=== PATIENT | male | born 1950 | race Caucasian/White ===

== ENCOUNTER → 2021-06-21 09:38 | Outpatient (CLI) | payer MEDICARE, MEDICAID, SELFPAY ==
[2021-06-21 11:04] LABS: COVID19 -Nasal RAPID Negative (Negative)
== END ==
PROVIDERS: Visit Provider Surgery
DX: Z01.812 Encounter for preprocedural laboratory examination (principal); Z20.822 Contact with and (suspected) exposure to COVID-19
CPT/HCPCS: 87635

== ENCOUNTER 2021-06-21 09:46 | Day surgery (SDC) | payer MEDICARE, MEDICAID, SELFPAY ==
--- NOTE | 2021-06-21 | PATH_ITS ---
[facility] Accession Number: [id number] . 01 Material submitted: . PART A: hepatic flexure - HEPATIC POLYP PART B: sigmoid colon - SIGMOID POLYP . 02 Diagnosis: A. Hepatic Flexure, Polyp, Biopsy: Tubular adenoma. . B. Sigmoid Colon, Polyp, Biopsy: Hyperplastic polyp. V 06/26/2021 1248 Local . 02 Electronically signed: . Sammi Kotahri MD, Pathologist NPI- [id number] . 01 Gross description: . Part A: HEPATIC POLYP: Received in formalin are multiple fragment(s) of aranda, soft tissue measuring 0.7 x 0.3 x 0.1 cm in aggregate submitted entirely in 1 cassette(s) Part B: SIGMOID POLYP: Received in formalin is 1 fragment(s) of aranda, soft tissue measuring 0.9 x 0.5 x 0.3 cm , which is bisected and submitted entirely in 1 cassette(s) /[facility] 06/23/2021 0154 Local . 02 Pathologist provided ICD-10: D12.3 . 02 CPT . 193195, 012650 Specimen Comment: A courtesy copy of this report has been sent to [phone] Performed at: 01 [facility] [address] [facility], [place], [place] [id number] MD Armond Reynoso MD Phone: [phone] Performed at: 02 [facility] [address] [place], [place] [id number] MD Sammi Kothari MD Phone: [phone]
[2021-06-21 10:52] VITALS: BP 109/80; PULSE 89; RESP 16; TEMP 36.5; O2SAT 98; BMI 24.3
[2021-06-21] MEDS: SODIUM CHLORIDE 0.9% 1,000 ML 84 ML IV (11:04)
--- NOTE | 2021-06-21 11:19 | PM.HP.1 ---
History of Present Illness History of Present Illness Date Patient Seen: 06/21/21 Chief complaint: SDC Narrative: History of adenomatous colon polyps Patient History Medical History (Updated 06/21/21 @ 10:41 by Neil Barreto, RN) Benign prostate hyperplasia Osteoarthritis Restless leg syndrome Surgical History (Updated 06/21/21 @ 10:42 by Neil Barreto, RN) H/O lumbosacral spine surgery History of ankle surgery Family & Social History Social History: household members significant other Tobacco & Substance use: Tobacco type cigarettes Smoking Status Never smoker alcohol intake never Substance Use Type marijuana Meds Home Medications and Allergies Home Medications Medication Instructions Recorded Confirmed Type finasteride 5 mg tablet 5 mg PO QPM #0 01/18/17 06/21/21 History gabapentin 300 mg capsule 600 mg PO TID #0 01/18/17 06/21/21 History (Neurontin) ibuprofen 200 mg tablet 800 mg PO PRN PRN #0 01/18/17 06/21/21 History oxymetazoline 0.05 % nasal spray 1 spray INTRANASAL DAILY #0 01/18/17 06/21/21 History (Afrin (oxymetazoline)) ropinirole 0.5 mg tablet 5 mg PO HS #0 01/18/17 06/21/21 History tamsulosin 0.4 mg capsule (Flomax) 0.4 mg PO QPM #0 01/18/17 06/21/21 History acetaminophen 325 mg tablet 0 mg PO Q4HP PRN #30 02/01/17 06/21/21 Rx clonazepam 1 mg tablet 1 mg PO PRN PRN 06/21/21 06/21/21 History Allergies Allergy/AdvReac Type Severity Reaction Status Date / Time No Known Allergies Allergy Uncoded 06/21/21 10:20 Exam Vital Signs (past 8 hours): - 06/21/21 10:52 Temperature 97.7 F Pulse Rate 89 Respiratory Rate 16 Blood Pressure 109/80 Pulse Oximetry 98 Oxygen Delivery Method Room Air Narrative Exam Narrative: Oropharynx free of lesions Chest clear to auscultation percussion Cardiac exam reveals no S3 or murmur Assessment & Plan Assessment & Plan narrative: History of adenomatous colon polyps need for follow-up colonoscopy. Risks, benefits, alternatives have been explained. Time Spent With Patient Critical Care time: I spent a total of [] minutes of critical care time on this patient's care today; this time is exclusive of procedural time.
--- NOTE | 2021-06-21 11:20 | P.OP.COLON_ITS ---
Operative Date/Time/Diagnoses Date of procedure: 06/21/21 Pre-op diagnosis: See indication and findings Procedure & Clinicians Study performed: Colonoscopy Indications: History of adenomatous colon polyps Surgeon: Ksehia Burton Procedure Notes Procedure in detail: After informed consent was obtained the patient was placed in left lateral decubitus position. The video colonoscope was introduced the rectum and slowly advanced to the cecum. Preparation was good. On slow withdrawal mucosa was carefully examined. The scope was removed. The patient tolerated procedure well. Blood loss none Complications none Sedation mac Findings 1. 6 mm polyp, sessile, in the hepatic flexure cold snared and removed com pletely 2. 10-11 mm sessile polyp in the sigmoid colon. Attempts were made to cold snared but could not be completely resected. Therefore cautery was added and a brief burst of Endo cut cause complete resection. Specimen was retrieved. 3. Otherwise negative colonoscopy to cecum Will be in touch regarding biopsy results. He should have follow-up colonoscopy in 3-5 years pending pathology.
[2021-06-21 11:59] VITALS: BP 91/55; PULSE 70; RESP 24; TEMP 36.2; O2SAT 94
[2021-06-21 12:03] VITALS: BP 100/62; PULSE 69; RESP 18; O2SAT 94
[2021-06-21 12:08] VITALS: BP 103/64; PULSE 69; RESP 17; O2SAT 95
[2021-06-21 12:20] VITALS: BP 104/68; PULSE 75; RESP 16; TEMP 36.6; O2SAT 97
[2021-06-21 12:25] VITALS: BP 114/64; PULSE 71; RESP 15; TEMP 36.6; O2SAT 97
== END 2021-06-21 12:35 | disposition home or self-care (01) ==
PROVIDERS: PCP Physician Assistant; Referring Provider Internal Medicine Gastroenterology; Visit Provider Internal Medicine Gastroenterology
PROC: 0DJD8ZZ Inspection of Lower Intestinal Tract, Via Natural or Artificial Opening Endoscopic (ICD-10-PCS; CPT 45378; principal; 2021-06-21 11:30)
DX: Z12.11 Encounter for screening for malignant neoplasm of colon (principal); Z86.010 Personal history of colon polyps; Z20.822 Contact with and (suspected) exposure to COVID-19; D12.3 Benign neoplasm of transverse colon; Z01.812 Encounter for preprocedural laboratory examination
CPT/HCPCS: 45385; 45384; 87635; C9803; J2704

== ENCOUNTER → 2022-11-14 10:51 | Outpatient (CLI) | payer OTHER, SELFPAY ==
--- NOTE | 2022-11-14 10:53 | DI.CT.S_ITS ---
PROCEDURE: CT CERVICAL SPINE WO CON INDICATIONS: Cervicalgia TECHNIQUE: Noncontrast 3 mm thick sections acquired from the skull base to the T4 level. Sagittal and coronal reformats were then constructed. For radiation dose reduction, the following was used: automated exposure control, adjustment of mA and/or kV according to patient size. COMPARISON: [facility], MR, MR CERVICAL SPINE WITH/WITHOUT CONTRAST, 07/11/2022, 8:39. [facility], CR, XR CERVICAL SPINE WITH FLEXION EXTENSION, 10/12/2022, 12:38. FINDINGS: Image quality: Excellent. Bones: No fractures or dislocations. Visualized superior ribs are intact. Focal degenerative change is seen involving the C1-C2 interface anteriorly. At the C2-C3 level, there is partially bridging anterior and posterior endplate osteophytes. At the C3-C4 level, there is severe disc space narrowing, with vertebral body fusion. Posteriorly directed endplate osteophytes are seen at this level. Moderate to severe central canal narrowing is seen. Moderate to severe bilateral neural foraminal narrowing can be seen. At the C4-C5 level, there is mild grade 1 anterolisthesis. Moderate to severe loss of disc height is seen. Endplate irregularity and sclerosis can be seen. Posteriorly projected endplate osteophytes are seen. There is moderate to severe central canal narrowing and moderate to severe bilateral neural foraminal narrowing. At C5-C6, there is severe loss of disc height, with vertebral body fusion. Posteriorly directed endplate osteophytes are seen at this level. At least moderate central canal narrowing is seen. Moderate to severe bilateral neural foraminal narrowing is seen. At C6-C7, there is at least moderate loss of disc height. Endplate irregularity and sclerosis can be seen. Vacuum disc phenomenon is seen at this level. There is moderate central canal narrowing. Moderate to severe bilateral neural foraminal narrowing is seen. At C7-T1, there is moderate to severe loss of disc height. Endplate irregularity and sclerosis can be seen. Bridging anterior osteophytes are seen. Mild grade 1 anterolisthesis is seen at this level. Moderate central canal narrowing is seen. At least moderate bilateral neural foraminal narrowing can be seen. At least moderate degenerative change can be seen involving the upper thoracic spine. Levoconvex cervical thoracic scoliosis is seen. Soft tissues: Prevertebral soft tissues are normal in thickness. No paravertebral hematomas. No apical pneumothoraces. IMPRESSION: Multiple levels of prominent cervical spine degenerative change can be seen. Dictated by: Alli Gonzalez M.D. on 11/14/2022 at 13:33 Approved by: Alli Gonzalez M.D. on 11/14/2022 at 13:37
== END ==
PROVIDERS: PCP Physician Assistant; Referring Provider Orthopaedic Surgery Orthopaedic Surgery of the Spine; Visit Provider Orthopaedic Surgery Orthopaedic Surgery of the Spine
DX: M54.2 Cervicalgia (principal); M47.812 Spondylosis without myelopathy or radiculopathy, cervical region
CPT/HCPCS: 72125

== ENCOUNTER 2024-05-25 09:17 | Day surgery (SDC) | payer OTHER, SELFPAY ==
--- NOTE | 2024-05-25 | PATH_ITS ---
[facility] Accession Number: [id number] No. of containers..01 Tissue . 01 Material submitted: . colon - RIGHT COLON POLYP . 01 Diagnosis: A. RIGHT COLON, POLYPECTOMY: Tubular adenoma. [facility] 05/26/2024 1630 Local . 01 Electronically signed: . Red Klein MD, Pathologist NPI- [id number] . 01 Gross description: . RIGHT COLON POLYP: Received in formalin are 2 fragment(s) of aranda, soft tissue measuring 0.1 x 0.1 x 0.1 cm to 0.3 x 0.3 x 0.2 cm submitted entirely in 1 cassette(s) /[facility] 05/26/2024 0140 Local . 01 Pathologist provided ICD-10: Z12.11 . 01 CPT . 872050 Specimen Comment: A courtesy copy of this report has been sent to [phone] Performed at: 01 [facility] [address], [place], [place] [id number] MD Armond Reynoso MD Phone: [phone]
[2024-05-25 09:57] VITALS: BP 134/83; PULSE 76; RESP 18; TEMP 36.6; O2SAT 97
[2024-05-25] MEDS: LACTATED RINGERS 1,000 ML 42 ML IV (10:06)
--- NOTE | 2024-05-25 10:22 | PM.HP.IH.1 ---
History of Present Illness History of Present Illness Date Patient Seen: 05/25/24 Chief complaint: SDC Narrative: History of colon polyps need for follow-up colonoscopy to 3 year interval [facility] Medical History (Updated 06/21/21 @ 10:41 by Neil Barreto, RN) Osteoarthritis Benign prostate hyperplasia Restless leg syndrome Surgical History (Updated 06/21/21 @ 10:42 by Neil Barreto, RN) H/O lumbosacral spine surgery History of ankle surgery Social History household members: significant other Smoking Status: Never smoker alcohol intake: never Meds Home Medications and Allergies Home Medications Medication Instructions Recorded Confirmed Type finasteride 5 mg tablet 5 mg PO QPM ##0 01/18/17 05/25/24 History gabapentin 300 mg capsule 600 mg PO TID ##0 01/18/17 05/25/24 History (Neurontin) ibuprofen 200 mg tablet 800 mg PO PRN PRN Pain (Scale 01/18/17 06/21/21 History Score 4-6) ##0 oxymetazoline 0.05 % nasal spray 1 spray intranasal DAILY ##0 01/18/17 05/25/24 History (Afrin (oxymetazoline)) tamsulosin 0.4 mg capsule (Flomax) 0.4 mg PO QPM ##0 01/18/17 05/25/24 History acetaminophen 325 mg tablet 0 mg (0 x 325 mg) PO Q4HP PRN ##30 02/01/17 06/21/21 Rx clonazepam 1 mg tablet 0.5 mg PO PRN PRN Sleep 06/21/21 05/25/24 History sodium,potassium,mag sulfates 17.5 See Rx Instructions PO .COMPLEX 05/06/24 Rx gram-3.13 gram-1.6 gram oral soln #354 mL (Suprep Bowel Prep Kit) Allergies Allergy/AdvReac Type Severity Reaction Status Date / Time No Known Allergies Allergy Uncoded 06/21/21 10:20 Exam Vital Signs (past 8 hours): - 05/25/24 09:57 Temperature 97.8 F Pulse Rate 76 Respiratory Rate 18 Blood Pressure 134/83 Pulse Oximetry 97 Oxygen Delivery Method Room Air Oxygen Delivery Method Room Air Narrative Exam Narrative: Oropharynx free of lesions Chest clear to auscultation percussion Cardiac exam reveals no S3 or murmur Assessment & Plan Assessment & Plan narrative: Follow-up colonoscopy for history of polyps. Risks, benefits, alternatives have been explained. Time-Based Coding :: [TOTAL MINUTES] spent with patient and on the chart (including review of chart, obtaining history, exam, reviewing outside data, placing orders, documenting exam and treatment plan, and counseling patient) on [DATE]. [employer] Document charge(s): No
--- NOTE | 2024-05-25 10:23 | PM.OP.COLON ---
Operative Date/Time/Diagnoses Date of procedure: 05/25/24 Pre-op diagnosis: See indication and findings Procedure & Clinicians Study performed: Colonoscopy Same procedure as scheduled: Yes Indications: History of polyps Surgeon: Keshia Burton Procedure Notes Procedure in detail: After informed consent was obtained the patient was placed in left lateral decubitus position. The video colonoscope was introduced the rectum and slowly advanced cecum. Preparation was good. On slow withdrawal mucosa was carefully examined. The scope was removed. The patient tolerated procedure well. Blood loss none Complications none Sedation mac Findings 1. 5 mm polyp in mid right colon partially snared and then completed with the Jumbo biopsy forceps. 2. Otherwise negative colonoscopy to cecum Depends on the findings here but he probably needs 1 additional colonoscopy and EGD
[2024-05-25 10:48] VITALS: BP 91/48; PULSE 65; RESP 13; TEMP 36.6; O2SAT 92
[2024-05-25 10:52] VITALS: BP 92/47; PULSE 63; RESP 14; O2SAT 93
[2024-05-25 10:57] VITALS: BP 98/53; PULSE 64; RESP 15; O2SAT 93
[2024-05-25 11:01] VITALS: BP 101/69; PULSE 79; RESP 15; TEMP 36.6; O2SAT 97
== END 2024-05-25 11:15 | disposition home or self-care (01) ==
PROVIDERS: PCP Physician Assistant; Referring Provider Internal Medicine Gastroenterology; Visit Provider Internal Medicine Gastroenterology
PROC: 0DJD8ZZ Inspection of Lower Intestinal Tract, Via Natural or Artificial Opening Endoscopic (ICD-10-PCS; CPT 45378; principal; 2024-05-25 10:30)
DX: Z12.11 Encounter for screening for malignant neoplasm of colon (principal); Z86.0100 Personal history of colon polyps, unspecified; D12.2 Benign neoplasm of ascending colon
CPT/HCPCS: 45385; J2704